=== PATIENT | female | born 1975 | race Caucasian/White ===

== ENCOUNTER 2022-01-30 06:45 | Day surgery (SDC) | payer OTHER ==
[2022-01-27 10:16] VITALS: BMI 22.0
[2022-01-30] MEDS ORDERED: ceFAZolin SODIUM 1 GM VIAL ONE ×2 (07:10→08:10)
[2022-01-30] MEDS ORDERED: GENTAMICIN SO4 80 MG/2 ML VIAL ONE (07:10)
[2022-01-30] MEDS ORDERED: VANCOMYCIN 1,000 MG VIAL (RESTRICTED TO ID ONLY) ONE (07:10)
[2022-01-30] MEDS ORDERED: PROPOFOL 40 ML ONE (07:34)
[2022-01-30] MEDS ORDERED: MIDAZOLAM HCL 2 MG/2 ML SINGLE DOSE VIAL ONE (07:34)
[2022-01-30] MEDS ORDERED: SUCCINYLCHOLINE CHLORIDE 200 MG/10 ML SYRINGE ONE (07:34)
[2022-01-30] MEDS ORDERED: ONDANSETRON 4 MG/2 ML VIAL ONE (08:10)
[2022-01-30] MEDS ORDERED: DEXAMETHASONE SOD PHOSPHATE 4 MG/1 ML VIAL ONE (08:10)
[2022-01-30] MEDS ORDERED: BUPIVACAINE HCL/PF 2.5 MG/ML - 30 ML VIAL IJ ONE (08:20)
[2022-01-30] MEDS ORDERED: BUPIVACAINE HCL/PF 0.25% (2.5MG/ML) 10 ML VIAL STI ONE (08:49)
[2022-01-30] MEDS ORDERED: ONDANSETRON 4 MG/2 ML VIAL IVPUSH PRN (09:08)
[2022-01-30] MEDS ORDERED: oxyCODONE HCL 5 MG TABLET PO PRN (09:08)
[2022-01-30] MEDS ORDERED: LACTATED RINGERS SOLUTION 1,000 ML IV SCH (09:15)
[2022-01-30] MEDS ORDERED: FENTANYL CITRATE/PF 50 MCG/ML VIAL ONE (09:19)
[2022-01-30] MEDS ORDERED: ACETAMINOPHEN 500 MG TABLET (FP) PO ONE (09:31)
[2022-01-30 10:19] VITALS: TEMP 97.6
[2022-01-30 11:23] VITALS: BP 106/66; PULSE 68; RESP 16
== END 2022-01-30 11:49 | disposition home or self-care (01) ==
LOC: FASU 06:45
PROVIDERS: ATTEND Surgery Plastic and Reconstructive Surgery
PROC: 0HPT0JZ Removal of Synthetic Substitute from Right Breast, Open Approach (ICD-10-PCS; 2022-01-30)
PROC: 0HRV0JZ Replacement of Bilateral Breast with Synthetic Substitute, Open Approach (ICD-10-PCS; 2022-01-30)
PROC: 0HPU0JZ Removal of Synthetic Substitute from Left Breast, Open Approach (ICD-10-PCS; principal; 2022-01-30 08:15)
DX: T85.49XA Other mechanical complication of breast prosthesis and implant, initial encounter (principal); Y82.8 Other medical devices associated with adverse incidents; Y92.9 Unspecified place or not applicable; M95.4 Acquired deformity of chest and rib; Z90.13 Acquired absence of bilateral breasts and nipples
CPT/HCPCS: 19342; 19370; L8600; 81025; 88300-TC; 94760